=== PATIENT | female | born 1995 | race Caucasian/White ===

== ENCOUNTER 2024-02-15 02:06 | Emergency (ER) | payer OTHER | END 2024-02-15 02:41 | disposition left against medical advice (07) | LOC: ER 02:08 | DX: O26.899 Other specified pregnancy related conditions, unspecified trimester (principal); M54.9 Dorsalgia, unspecified; R10.9 Unspecified abdominal pain; Z53.21 Procedure and treatment not carried out due to patient leaving prior to being seen by health care provider; Z3A.00 Weeks of gestation of pregnancy not specified ==